=== PATIENT | female | born 1995 | race American Indian/Alaskan Native ===

== ENCOUNTER 2018-01-04 21:10 | Emergency (ER) | payer SELFPAY ==
[2018-01-04 21:15] VITALS: BP 128/66
[2018-01-04 22:54] LABS: Bacteria,Urine 1+ /HPF (Negative); Bilirubin,Urine NEG (Negative); Blood,Urine LG (Negative); Color,Urine Yellow (Yellow); Nitrite,Urine NEG (Negative)
[2018-01-04 22:55] LABS: HCG Qualitative,Urine Negative (Negative)
[2018-01-04 23:02] LABS: RBC,Urine > 182.0 /HPF (0.0-6.0)
[2018-01-04] MEDS ORDERED: MOTRIN PO ONE (23:20)
[2018-01-04] MEDS ORDERED: MOTRIN ONE (23:20)
--- NOTE | 2018-01-05 02:26 | Emergency Department Report ---
ED Female HPI - General Chief complaint: Back Pain/Injury Stated complaint: ABDOMINAL,BACK PAIN Time Seen by Provider: 01/05/18 02:24 Source: patient Mode of arrival: Ambulatory Limitations: No Limitations - History of Present Illness Initial comments: Patient reports that she is having lower back pain on both sides and nausea onset after starting Macrodantin and Flagyl and Tylenol No. 3. Patient says she was treated at [facility] for bacterial vaginosis and urinary tract infection she said she started her period today. She states she is taking the medication because they told her that she has a urinary tract infection but the pain is getting worse. Denies any burning on urination. She does report frequency and urgency. Denies any fever or chills. She says she had nausea started last week on and off without any vomiting. Denies any abdominal pain or vaginal discharge. Pain to lower back as 9 out of 10 and aching in and she said they gave her Tylenol 3 which has been helping but she does not have any at present. She says she was having low-grade fever but she said some Motrin today and it's better. She placed on triage sheet that she had her last period 12/16 2017 but her period is very irregular and it started today. Patient says she went to see her doctor a few days ago. Complaint: other (back pain and nausea) Onset/Timin -: week(s) Location: other (lower back) Radiation: non-radiating Severity: severe Severity scale (0 -10): 9 Quality: aching Improves with: none Worsens with: none Are you Now?: No (started today) Associated Symptoms: vaginal bleeding (started her menses today), nausea/ vomiting, fever/chills, loss of appetite. denies: vaginal discharge, abdominal pain, headaches, dysuria, hematuria, rash, seizure, shortness of breath, syncope , weakness - Related Data Sexually active: Yes Previous Rx's Medication Instructions Recorded Last Taken Type Ibuprofen [Motrin] 600 mg PO Q8H PRN #12 tablet 01/05/18 Unknown Rx Ondansetron [Zofran Odt] 4 mg PO Q6H PRN #16 tab.rapdis 01/05/18 Unknown Rx Sulfamethoxazole/Trimethoprim 1 each PO BID 10 Days #20 tablet 01/05/18 Unknown Rx [Bactrim DS TAB] Allergies Allergy/AdvReac Type Severity Reaction Status Date / Time No Known Allergies Allergy Verified 01/04/18 23:24 ED Review of Systems ROS: Stated complaint: ABDOMINAL,BACK PAIN Other details as noted in HPI Comment: All other systems reviewed and negative Constitutional: chills, fever Eyes: denies: eye pain, eye discharge ENT: denies: ear pain, throat pain, congestion Respiratory: no symptoms reported Cardiovascular: denies: chest pain, palpitations, dyspnea on exertion, edema, syncope, paroxysmal nocturnal dyspnea Gastrointestinal: nausea. denies: abdominal pain, vomiting, diarrhea, constipation, hematemesis, melena, hematochezia Genitourinary: urgency, frequency, abnormal menses. denies: dysuria, hematuria , discharge, dyspareunia Musculoskeletal: back pain. denies: joint swelling, arthralgia, myalgia Skin: denies: rash Neurological: denies: headache, numbness, paresthesias, confusion, abnormal gait , vertigo ED Past Medical Hx - Past Medical History Previous Medical History?: No Additional medical history: Urinary tract infection - Surgical History Past Surgical History?: No - Family History Family history: no significant - Social History Smoking Status: Never Smoker Substance Use Type: None - Medications Home Medications: Home Medications Medication Instructions Recorded Confirmed Last Taken Type Ibuprofen [Motrin] 600 mg PO Q8H PRN #12 tablet 01/05/18 Unknown Rx Ondansetron [Zofran Odt] 4 mg PO Q6H PRN #16 tab.rapdis 01/05/18 Unknown Rx Sulfamethoxazole/Trimethoprim 1 each PO BID 10 Days #20 tablet 01/05/18 Unknown Rx [Bactrim DS TAB] ED Physical Exam - General Limitations: No Limitations General appearance: alert, in no apparent distress - Head Head exam: Present: atraumatic, normocephalic, normal inspection - Eye Eye exam: Present: normal appearance, PERRL, EOMI. Absent: periorbital swelling , periorbital tenderness Pupils: Present: normal accommodation - ENT ENT exam: Present: normal exam, normal orophraynx, mucous membranes moist, TM's normal bilaterally, normal external ear exam - Neck Neck exam: Present: normal inspection, full ROM, other (no C-spine tenderness). Absent: tenderness, meningismus, lymphadenopathy, thyromegaly - Respiratory Respiratory exam: Present: normal lung sounds bilaterally. Absent: respiratory distress, chest wall tenderness, accessory muscle use - Cardiovascular Cardiovascular Exam: Present: normal rhythm, tachycardia, normal heart sounds. Absent: systolic murmur, diastolic murmur - GI/Abdominal GI/Abdominal exam: Present: soft, normal bowel sounds. Absent: distended, tenderness, guarding, rebound, rigid, organomegaly, mass, bruit, pulsatile mass , hernia - Extremities Exam Extremities exam: Present: normal inspection, full ROM, normal capillary refill , other (no clubbing, cyanosis or edema. +2 pulses all extremities and no neurovascular compromise. As 5 strength in all extremities). Absent: tenderness, pedal edema, joint swelling, calf tenderness - Back Exam Back exam: Present: normal inspection, full ROM, other (ambulates without any difficulties). Absent: tenderness, CVA tenderness (R), CVA tenderness (L), muscle spasm, paraspinal tenderness, vertebral tenderness, rash noted - Expanded Back Exam Expanded Back exam: Absent: saddle anesthesia Back exam: Negative Straight Leg Raising: Left, Right - Neurological Exam Neurological exam: Present: alert, oriented X3, normal gait, reflexes normal, other (no gross focal neurological deficit). Absent: motor sensory deficit - Psychiatric Psychiatric exam: Present: normal affect, normal mood - Skin Skin exam: Present: warm, dry, intact, normal color. Absent: rash ED Course Vital Signs 01/04/18 01/04/18 01/05/18 21:10 21:14 04:13 Temperature 98.4 F 98.4 F 98.7 F Pulse Rate 119 H 116 H 99 H Respiratory 18 18 16 Rate Blood Pressure 128/66 128/66 O2 Sat by Pulse 100 100 98 Oximetry Vital Signs 01/04/18 01/04/18 01/05/18 21:10 21:14 04:13 Temperature 98.4 F 98.4 F 98.7 F Pulse Rate 119 H 116 H 99 H Respiratory 18 18 16 Rate Blood Pressure 128/66 128/66 O2 Sat by Pulse 100 100 98 Oximetry - Reevaluation(s) Reevaluation #1: 01/05/18 04:14 Patient given Rocephin 1 g IM and started on Bactrim DS one tablet by mouth in the emergency room. She was given ibuprofen 800 mg at 2330 and hydrocodone 5/ 7.5 mg in ED room and voiced relief of pain. Patient also given Zofran 8 mg ODT and 4 mg intermittent and she has no nausea and able to tolerate oral liquids. Patient drank one cup of water and 3 cups of juice without any nausea or vomiting ED Medical Decision Making - Lab Data Lab Results 01/04/18 Range/Units Unknown Urine Color Yellow (Yellow) Urine Turbidity Clear (Clear) Urine pH 7.0 (5.0-7.0) Ur Specific [place] 1.014 (1.003-1.030) Urine Protein 30 mg/dl (Negative) mg/dL Urine Glucose (UA) Neg (Negative) mg/dL Urine Ketones Neg (Negative) mg/dL Urine Blood Lg (Negative) Urine Nitrite Neg (Negative) Urine Bilirubin Neg (Negative) Urine Urobilinogen 2.0 (<2.0) mg/dL Ur Leukocyte Esterase Tr (Negative) Urine WBC (Auto) 18.0 H (0.0-6.0) /HPF Urine RBC (Auto) > 182.0 (0.0-6.0) /HPF U Epithel Cells (Auto) 2.0 (0-13.0) /HPF Urine Bacteria (Auto) 1+ (Negative) /HPF Urine HCG, Qual Negative (Negative) Urine culture pending - Radiology Data Radiology results: report reviewed - Medical Decision Making ED course: Patient here report lower back pain and urinary urgency and frequency. She also reports that she is having some nausea. Patient says she went to the Medical and was given Macrobid and Flagyl to treat urinary tract infection and bacterial vaginosis. She says she started taking the medication and got sick and she took most of the medicine but she is having lower back pain and some urinary frequency urgency without any urinary burning. Denies any fever or chills. Her vital signs are stable she is afebrile at present. Patient was found to have urinary tract infection. test negative and cultures sent and pending. Patient was given Motrin 800 mg in the emergency room, she was later given [place] 7.5/325 mg 1 tablet and Zofran 4 mg ODT 2. She was orally hydrated in the emergency room. Patient was given Rocephin 1 g IM and Bactrim DS one tablet by mouth for urinary tract infection. I discussed patient diagnoses, treatment plan need to follow up and keep herself hydrated. Patient was undescended discharge instructions and treatment plan and discharged home in stable condition with prescription for Bactrim DS, Zofran and Motrin and to follow up with primary care physician. Critical care attestation.: If time is entered above; I have spent that time in minutes in the direct care of this critically ill patient, excluding procedure time. ED Disposition Clinical Impression: Acute cystitis with hematuria, Nausea alone Lower back pain Qualifiers: Chronicity: acute Back pain laterality: bilateral Sciatica presence: without sciatica Qualified Code(s): M54.5 - Low back pain Disposition: TO HOME OR SELFCARE Is pt being admited?: No Does the pt Need Aspirin: No Condition: Stable Instructions: Urinary Tract Infection in Women (ED), Acute Nausea and Vomiting (ED), Back Pain (ED) Additional Instructions: Please increase her fluid intake to 2-3 L of water, cranberry juice or apple juice daily Take probiotic with antibiotic and this can help to prevent diarrhea Please stop taking Macrobid if you have anymore and start taking an Bactrim DS Please urinate after each sexual activity and do not hold urine when you get the urge to go Diffuse symptoms worsen, you can return to the emergency room otherwise follow- up with your primary care physician Prescriptions: Ibuprofen [Motrin] 600 mg PO Q8H PRN #12 tablet PRN Reason: Pain Ondansetron [Zofran Odt] 4 mg PO Q6H PRN #16 tab.rapdis PRN Reason: Nausea And Vomiting Sulfamethoxazole/Trimethoprim [Bactrim DS TAB] 1 each PO BID 10 Days #20 tablet Referrals: [facility] [Outside] - 2-3 Days follow-up with your, primary care physician [Other] - 2-3 Days Forms: Accompanied Note, Work/School Release Form(ED)
[2018-01-05] MEDS ORDERED: NORCO 7.5/325 PO ONE (02:43)
[2018-01-05] MEDS ORDERED: XYLOCAINE 1% MPF 5 mL INFILTRATI ONE (02:43)
[2018-01-05] MEDS ORDERED: ROCEPHIN IM ONE (02:43)
[2018-01-05] MEDS ORDERED: ZOFRAN ODT PO ONE ×2 (02:43→03:19)
[2018-01-05] MEDS ORDERED: BACTRIM DS PO ONE (02:43)
== END 2018-01-05 04:31 | disposition home or self-care (01) ==
LOC: ED 21:10
DX: M54.5 Low back pain (principal)
CPT/HCPCS: 81001; 81025; 87086; 96372; 99283; J0696; Q0162